=== PATIENT | female | born 1990 | race Caucasian/White ===

== ENCOUNTER 2022-07-21 13:55 | Outpatient (CLI) | payer BC, SELFPAY ==
[2022-07-21 14:11] VITALS: PULSE 94; O2SAT 98
[2022-07-21 14:12] VITALS: BP 108/64; PULSE 84
[2022-07-21 14:16] VITALS: TEMP 36.9
--- NOTE | 2022-07-21 14:53 | CRLHL7_ITS ---
For Patients: As a result of the Century Cures Act, medical imaging exams and procedure reports are released immediately into your electronic medical record. You may view this report before your referring provider. If you have questions, please contact your health care provider. INDICATION: Trauma, fall TECHNIQUE: Ultrasound OB pelvis transabdominal. Real-time sanchez-scale imaging of the fetus was performed without stress testing. COMPARISON: None. FINDINGS: Sonographic imaging demonstrates a single living intrauterine gestation. Fetus demonstrates a regular cardiac rate of 132 beats per minute. Fetus has a breech orientation. Amniotic fluid volume appears normal. breathing movements, motion, and tone were all observed. IMPRESSION: Single viable intrauterine with a biophysical profile 01/19. Dictated by Miguelito Rodrigues MD @ 07/21/2022 4:18:45 PM (Electronically Signed)
--- NOTE | 2022-07-21 18:52 | PC.OBNST ---
NST Note NST Note Start: 07/21/22 14:07 Freq: ONCE Status: Active Protocol: Document 07/21/22 18:50 HOLINESS (Rec: 07/21/22 18:52 HOLINESS [id number]) NST Note 3 Para (# of births) 2 EDC 10/05/22 Gestational Age In Weeks & Days 29 Weeks & 1 Days Patient Presented with Complaint(s) of Observation after an injury If Observation after an injury, describe patient fell at 1730 last night, on her right side. Reactive Yes Appropriate for Gestational Age Yes NISHANT Barboza Date 07/21/22 Reactive Yes Appropriate for Gestational Age Yes NISHANT Medina Date 07/21/22 OB NST charge Yes Complete NST Note via Write Note Yes The provider's electronic signature indicates the NST is reactive/appropriate for gestational age. *Note to provider: If an addendum is required, open the patient's chart and click on the note under the Nurse/Allied Health tab.
== END 2022-07-21 18:35 | disposition home or self-care (01) ==
LOC: OB OUT 14:00 → OB 14:01
PROVIDERS: PCP Family Medicine; Visit Provider Family Medicine
DX: O26.893 Other specified pregnancy related conditions, third trimester (principal); W19.XXXA Unspecified fall, initial encounter; Z3A.29 29 weeks gestation of pregnancy
CPT/HCPCS: 59025; 76819; 99213

== ENCOUNTER 2022-10-02 13:27 | Emergency (ER) | payer BC, SELFPAY ==
[2022-10-02] VITALS (17 sets, daily range): BP systolic 124–141; BP diastolic 66–85; PULSE 74–81; RESP 14–32; TEMP 36.8; O2SAT 97–100; BMI 41.3
--- NOTE | 2022-10-02 13:59 | CRLHL7_ITS ---
For Patients: As a result of the Century Cures Act, medical imaging exams and procedure reports are released immediately into your electronic medical record. You may view this report before your referring provider. If you have questions, please contact your health care provider. INDICATION: cardiomyopathy. TECHNIQUE: Chest 2 view(s) COMPARISON: None. FINDINGS: Mild cardiomegaly. Pulmonary vasculature is normal. No focal consolidation. No pleural effusion, no pneumothorax. No acute chest wall abnormality. IMPRESSION: Mild cardiomegaly. Dictated by Charlie Sunmer MD @ 10/02/2022 4:02:21 PM (Electronically Signed)
--- NOTE | 2022-10-02 14:07 | ED_ITS ---
HPI - General Adult General Chief complaint: Post OB/Post- Complication Stated complaint: 4 days post pardum, shortness of breath, high BP Time Seen by Provider: 10/02/22 13:50 Source: patient Mode of arrival: ambulatory Limitations: no limitations History of Present Illness HPI narrative: 32-year-old female presents with a 3 week history of nocturnal cough with increasing shortness of breath today. Patient reports that she went to urgent care but they recommended she be evaluated in the hospital, she has not tried to contact her Ob provider. She reports an uncomplicated with elective induction of labor at 39 weeks, delivering 4 days ago, discharging 3 days ago. She has no history of DVT or PE. She is . She feels like she cannot catch her breath. It is worse with lying down and worse at night. Denies any hypertension during the but elevated blood pressure noticed here today. She has no personal history of cardiomyopathy. She had possible preeclampsia during her 1st in was also induced at 39 weeks gestation. There were no complications following that delivery. She has no history of underlying cardiac disease. She has not taken any stimulant medications or new medications. She denies any heavy bleeding. States that the bleeding had tapered off nicely couple of days ago increases a little bit with activity which would not be unexpected at her course. No fevers. She is without complication. Past medical history she states is benign. Third , otherwise uncomplicated. She had a prior gallbladder removal at age 17 and a tonsillectomy as a child. No long-term prescription medications. No allergies. Nonsmoker, no alcohol no pertinent travel. ROS notable for dyspnea and cough as stated above. Otherwise denies times 12 systems. Related Data Home Medications Medication Instructions Recorded Confirmed vit no.95-ferrous 1 tab PO DAILY 07/21/22 10/02/22 fumarate 28 mg-folic acid 800 mcg tablet ( Formula) ferrous sulfate 325 mg (65 mg 325 mg PO DAILY 10/02/22 10/02/22 iron) tablet ibuprofen 800 mg tablet 800 mg PO 3XD 10/02/22 10/02/22 ursodiol 300 mg capsule 300 mg PO 3XD 10/02/22 10/02/22 Allergies Allergy/AdvReac Type Severity Reaction Status Date / Time No Known Drug Allergies Allergy Verified 10/02/22 16:36 PFSH PFSH Social History Smoking Status: Never smoker Do you use any of these nicotine containing products: None Second hand tobacco smoke exposure: No How often do you have a drink containing alcohol: never AUDIT-C Alcohol total score: 0 Non-prescribed substance use: denies use Exam Const: Vital Signs, click to edit/add: Vital Signs - 24 hr 10/02/22 13:37 10/02/22 13:50 10/02/22 13:52 Temperature 98.2 F Pulse Rate 75 77 Pulse Rate [Left] 74 Respiratory Rate 32 H Blood Pressure 136/80 132/73 Blood Pressure [Le ft Upper Arm] 141/74 H Pulse Oximetry 100 98 98 Oxygen Delivery Me thod Room Air 10/02/22 14:01 10/02/22 14:14 10/02/22 14:21 Temperature Pulse Rate 81 Pulse Rate [Left] Respiratory Rate Blood Pressure 140/80 H 137/70 129/71 Blood Pressure [Le ft Upper Arm] Pulse Oximetry 98 Oxygen Delivery Me thod 10/02/22 14:31 10/02/22 14:42 10/02/22 14:51 Temperature Pulse Rate Pulse Rate [Left] Respiratory Rate Blood Pressure 140/73 H 135/78 138/68 Blood Pressure [Le ft Upper Arm] Pulse Oximetry Oxygen Delivery Me thod 10/02/22 15:01 10/02/22 15:17 10/02/22 15:31 Temperature Pulse Rate Pulse Rate [Left] Respiratory Rate Blood Pressure 136/71 138/72 124/66 Blood Pressure [Le ft Upper Arm] Pulse Oximetry Oxygen Delivery Me thod 10/02/22 15:47 10/02/22 16:03 10/02/22 17:37 Temperature Pulse Rate 79 Pulse Rate [Left] Respiratory Rate Blood Pressure 134/72 140/85 H 129/70 Blood Pressure [Le ft Upper Arm] Pulse Oximetry 97 Oxygen Delivery Me thod 10/02/22 16:32 10/02/22 17:01 Temperature Pulse Rate 74 Pulse Rate [Left] Respiratory Rate 14 Blood Pressure 129/71 127/68 Blood Pressure [Le ft Upper Arm] Pulse Oximetry 98 97 Oxygen Delivery Me thod Documenting provider has reviewed patient's vital signs: yes Common normals: no apparent distress and alert General appearance: cooperative and well kempt Other: Tachypneic. When I lay her down her heart rate quickly climbs into the high 120s. She seems visibly dyspneic when lying flat. Polite, seems very well adjusted. Excellent insight. HENMT: Common normals: normocephalic and head/scalp atraumatic Head and scalp: normocephalic and atraumatic Face and sinus: normal facial exam Mouth: oral and palatal mucosa normal Throat: posterior oropharynx normal Eye: Common normals: conjunctivae normal General eye: normal appearance of both eyes Conjunctiva: conjunctiva(e) normal Neck & C-Spine: Common normals: full ROM and no lymphadenopathy Other: 6 cm JVD Resp: Other: Tachypneic with increased respiratory effort. Dyspnea with lying flat. Coarse crackles left lung barillas most of the way up the back of the chest. Do not clear with cough. Cardio: Common normals: regular rate, regular rhythm, S1 normal heart sound, S2 normal heart sound and no murmurs Rate: regular rate Rhythm: regular rhythm Heart sounds: S1 normal and S2 normal GI: Common normals: Normal to inspection, nondistended, normoactive bowel sounds present, soft to palpation, non-tender and no hepatosplenomegaly Palpation: soft and no hepatosplenomegaly Other: Fundal height consistent with 14 weeks gestation, appropriate : Common normals: no CVA tenderness Bladder/kidney exam: no CVA tenderness Back & Pelvis: Common normals: no CVA tenderness Extremity: Other: 2+ edema to ankles Neuro: Sensorium/orientation: alert Speech: speech normal Gait (neuro): normal gait Motor exam: no tremor noted and no movement abnormalities noted Psych: Appearance: well kempt Attitude: engaged Mood and affect: euthymic mood Insight: insight good Judgement: judgment good Skin: Common normals: no rashes or lesions noted General skin exam: no rashes or lesions noted Course Vital Signs Vital signs: Initial Vital Signs Temperature 98.2 F 10/02/22 13:37 Temperature Source Temporal Artery Scan 10/02/22 13:37 Pulse Rate 74 10/02/22 13:37 Respiratory Rate 32 H 10/02/22 13:37 Blood Pressure 141/74 H 10/02/22 13:37 Blood Pressure Mean 96 10/02/22 13:37 Blood Pressure Position Sitting 10/02/22 13:37 Pulse Oximetry 100 10/02/22 13:37 Oxygen Delivery Method Room Air 10/02/22 13:37 Vital Signs Temperature 98.2 F 10/02/22 13:37 Pulse Rate 74 10/02/22 13:37 Respiratory Rate 32 H 10/02/22 13:37 Blood Pressure 141/74 H 10/02/22 13:37 Pulse Oximetry 100 10/02/22 13:37 Oxygen Delivery Method Room Air 10/02/22 13:37 Temperature 98.2 F 10/02/22 13:37 Pulse Rate 74 10/02/22 16:32 Respiratory Rate 14 10/02/22 16:32 Blood Pressure 129/70 10/02/22 17:37 Pulse Oximetry 97 10/02/22 17:01 Oxygen Delivery Method Room Air 10/02/22 13:37 Medical Decision Making MDM Narrative Medical decision making narrative: Significant respiratory distress with supine position concerning for cardiomyopathy, preeclampsia. Cannot exclude pulmonary embolism though I would expect her to have more exertional symptoms rather than nocturnal. Begin with basic labs, EKG, chest x-ray. Echo is here so I can get feedback regarding her junction fraction right away. I have been making attempts to try to get a hold of her OB group and was on hold for over 10 min utes with no contact and needed to move along to another patient. I will continue to try to make contact. Update: Was able to make contact with her Ob provider. She agrees with our workup they would prefer MFM at [facility] if needed as they are able to access those notes more easily. We were able to get a bedside echo, thankfully this shows normal left ventricular function. There is a little bit of right ventricular enlargement on the tech impression and also on mine. I am more suspicious now that this could be pulmonary embolus. I have ordered CT PA. labs are thus far reassuring with the exception of the elevated D-dimer. Question the significance of this because she is so soon . I do think she would benefit from a dose of Lasix but I am waiting on the CT PA results. Final update: Patient is feeling better and her lung exam has actually improved quite a bit while here. She was not given any diuretics. Her respiratory rate has improved and she is no longer tachycardic with lying flat. She has urinated quite a bit while she has been here. She has eaten a full dinner and has been pumping breast milk without difficulty. The CT PA is reassuring, the blood work is reassuring. I did curbside consult our on-call Ob provider and she agrees that there are no signs of any severe preeclampsia. As long as patient can monitor her symptoms, is reliable for follow-up and can monitor her blood pressure at home, she does not need additional medication or hospitalization since we have the reassuring echo report. Discussed with patient, she is comfortable with this plan. She will contact her Ob provider right away and make a follow-up appointment for Wednesday. She will monitor her blood pressure at home and follow the guidelines we have discussed. I do think that atelectasis is a component as well and she will be taught incentive spirometry and instructed on how to use this to help with her respiratory symptoms as well. Lab Data Lab results reviewed: Yes I reviewed the patient's lab results Labs: Lab Results 10/02/22 Range/Units 14:20 WBC 8.93 (4.50-11.00) K/uL RBC 4.30 (4.00-5.20) m/uL Hgb 10.0 L (12.0-16.0) gm/dL Hct 33.0 (33.0-51.0) % MCV 77 L (80-100) fL MCH 23 L (26-34) pg MCHC 30 L (32-36) gm/dL RDW Coeff of Annie 16.5 H (11.5-15.5) % Plt Count 308 (140-440) K/uL Neut % (Auto) 65.8 (42.0-72.0) % Lymph % (Auto) 24.1 (20-44) % [place] % (Auto) 6.0 (0.0-11.0) % Eos % (Auto) 2.9 (0.0-7.0) % Baso % (Auto) 0.2 (0.0-3.0) % Neut # (Auto) 5.87 (1.7-7.0) K/uL Lymph # (Auto) 2.15 (0.90-2.90) K/uL [place] # (Auto) 0.50 (0.00-0.90) K/UL Eos # (Auto) 0.26 (0.00-0.50) K/uL Baso # (Auto) 0.02 (0.00-0.30) K/uL D-Dimer Quant (PE/DVT) 1.66 H (0.00-0.50) ug/ml Sodium 138 (135-149) mmol/L Potassium 3.7 (3.6-5.1) mmol/L Chloride 109 (96-114) mmol/L Carbon Dioxide 24 (20-32) mmol/L BUN 10 (5-24) mg/dL Creatinine 0.5 (0.5-1.5) mg/dL Estimated Creat Clear 134.86 Estimated GFR 129 ml/min Glucose 78 (60-115) mg/dL Calcium 8.7 (8.4-10.6) mg/dL Total Bilirubin 0.3 (0.1-1.5) mg/dL Direct Bilirubin 0.2 (0.0-0.5) mg/dL AST 26 (12-35) U/L ALT 26 (4-35) U/L Alkaline Phosphatase 165 H (40-150) U/L Troponin I < 0.01 L (0.01-0.04) ng/mL NT-Pro-B Natriuret Pep 951 pg/mL Total Protein 7.0 (6.0-8.3) g/dL Albumin 3.5 (3.3-5.0) g/dL Imaging Data Chest x-ray: Attestation: I have reviewed the pertinent imaging results. My impression: Some mild cardiomegaly but no signs of pulmonary vascular congestion on chest x- ray. Per tech report, the echo shows good left ventricular function with an EF of 60-65%. There is some mild LVH. There is moderate tricuspid regurg but looks like some right ventricular enlargement, waiting on the formal report which will not be available until tomorrow. Findings again suspicious for probably a pulmonary embolus. I have ordered a CT PA. Radiologist's impression: Chest x-ray IMPRESSION: Mild cardiomegaly. CT scan - chest: Attestation: I have reviewed the pertinent imaging results. My impression: No PE, small bilateral pleural effusions Radiologist's impression: IMPRESSION: 1. No evidence of acute pulmonary embolus, within limitations as described above. 2. Mild cardiomegaly. Small bilateral pleural effusions. Discharge Plan Discharge Clinical Impression: Mild pre-eclampsia, Atelectasis Patient Disposition: Home w/ Parent or Adult Condition: Improved Instructions: Atelectasis (ED), PEP Therapy (DC) Additional Instructions: We discussed, your symptoms do seem consistent with mild preeclampsia. We were able to rule out a blood clot in your lungs, any complications from preeclampsia and we were even able to get an echo which is the ultrasound of your heart which all tell us that your organs are functioning normally. Because of this, we do not need to put you in the hospital. I have spoken with our OB specialist and she is comfortable with the following plan: You need to monitor your blood pressure at least twice daily. Your blood pressure might be a little elevated for the next few days but should consistently be under 150. Remember that this is most accurate at rest rather than when you are very busy. If your blood pressure starts running over 150 and you start having increased headaches, dizziness, vision changes, severe fatigue, worsening shortness of breath, abdominal pain or other strange changes, we would want for you to come back to the ER. In addition to the mild preeclampsia, you have a little bit of atelectasis, a compression of your lungs that is common in . We will give you a simple breathing machine to help open these up. Please use this every 2 hours while awake. Please message your typical OB care team and ask for a follow-up appointment for Wednesday to recheck your blood pressure and see how things are going. We will send over copies of our records for their review as well. Please bring your discharge paperwork for them as it will have our contact numbers if they need this as well. Activity Level: Activity as Tolerated Discharge Diet: Regular Prescriptions: No Action PNV cmb#95-ferrous fumarate-FA [ Formula] 28 mg iron- 800 mcg tablet 1 tab PO DAILY ibuprofen 800 mg tablet 800 mg PO 3XD ferrous sulfate 325 mg (65 mg iron) tablet 325 mg PO DAILY ursodiol 300 mg capsule 300 mg PO 3XD Follow Up/Referrals: Alicja Felix MD [Staff Physician] - Stand Alone Forms: [employer] Info Instructions
[2022-10-02 14:34] LABS: Basophils Absolute Auto 0.02 K/uL (0.00-0.30); Basophils Percent Auto 0.2 % (0.0-3.0); Eosinophils Absolute Auto 0.26 K/uL (0.00-0.50); Eosinophils Percent Auto 2.9 % (0.0-7.0); Immature Granulocytes Abs Auto 0.09 K/uL (0.00-0.30); Lymphocytes Absolute Auto 2.15 K/uL (0.90-2.90); Lymphocytes Percent Auto 24.1 % (20-44); Mean Corpuscular HGB Conc 30 gm/dL (32-36); Mean Corpuscular Hemoglobin 23 pg (26-34); Mean Corpuscular Volume 77 fL (80-100); Neutrophils Absolute Auto 5.87 K/uL (1.7-7.0); Neutrophils Percent Auto 65.8 % (42.0-72.0); Platelet Count* 308 K/uL (140-440); RDW Coefficient of Variation % 16.5 % (11.5-15.5); White Blood Count* 8.93 K/uL (4.50-11.00)
[2022-10-02 14:49] LABS: Chloride* 109 mmol/L (96-114); Slide Review Reflex No
[2022-10-02 14:50] LABS: Albumin* 3.5 g/dL (3.3-5.0)
[2022-10-02 14:51] LABS: Potassium* 3.7 mmol/L (3.6-5.1); Sodium* 138 mmol/L (135-149)
[2022-10-02 14:53] LABS: Alkaline Phosphatase* 165 U/L (40-150); Aspartate Amino Transferase* 26 U/L (12-35); Bilirubin Direct* 0.2 mg/dL (0.0-0.5); Bilirubin Total* 0.3 mg/dL (0.1-1.5); Blood Urea Nitrogen* 10 mg/dL (5-24); Carbon Dioxide* 24 mmol/L (20-32); Creatinine* 0.5 mg/dL (0.5-1.5); Est. Creatinine Clearance* 134.86; Estimated Glomerular Filt Rate 129 ml/min
[2022-10-02 14:54] LABS: Alanine Aminotransferase* 26 U/L (4-35); Calcium* 8.7 mg/dL (8.4-10.6); Glucose* 78 mg/dL (60-115)
[2022-10-02 14:56] LABS: D Dimer Quantitative* 1.66 ug/ml (0.00-0.50)
[2022-10-02 15:07] LABS: NT Pro B Type NatriureticPept* 951 pg/mL; Troponin I* < 0.01 ng/mL (0.01-0.04)
--- NOTE | 2022-10-02 16:02 | CRLHL7_ITS ---
For Patients: As a result of the Century Cures Act, medical imaging exams and procedure reports are released immediately into your electronic medical record. You may view this report before your referring provider. If you have questions, please contact your health care provider. INDICATION: dyspnea. TECHNIQUE: CT chest PE was acquired with 95 cc Isovue 370 IV contrast. COMPARISON: Chest radiograph earlier same day, dated 10/02/2022. FINDINGS: Heart and vasculature: Mild cardiomegaly. No pericardial effusion. Suboptimal evaluation secondary to motion artifact and suboptimal contrast opacification of the pulmonary arteries. No filling defects identified within the main, lobar, and contrast opacified portions of the segmental pulmonary arteries. Lungs and pleura: Small bilateral pleural effusions, with associated compressive atelectasis. Subsegmental atelectasis in the right middle lobe. No evidence of pulmonary infarct. 0.5 cm subpleural nodule in the right middle lobe. Thyroid and lower neck: No suspicious thyroid nodule. Mediastinum/joaquim: No lymphadenopathy. Chest wall: No axillary lymphadenopathy. Upper abdomen: Post cholecystectomy. No acute abnormality. Bones: No suspicious/aggressive focal osseous lesion. IMPRESSION: 1. No evidence of acute pulmonary embolus, within limitations as described above. 2. Mild cardiomegaly. Small bilateral pleural effusions. 3. 0.5 cm subpleural pulmonary nodule in the right middle lobe. Consider optional follow up CT chest in 12 months, per Fleischner guidelines. Please note that all CT scans at this facility use dose modulation, iterative reconstruction, and/or weight-based dosing when appropriate to reduce radiation dose to as low as reasonably achievable. Dictated by Charlie Sumner MD @ 10/02/2022 5:43:15 PM (Electronically Signed)
--- NOTE | 2022-10-02 16:12 | ED.NURSE ---
Meal tray ordered for pt.
--- NOTE | 2022-10-02 18:38 | ED.NURSE ---
Pt provided with records from today's visit and Incentive Spirometry, return demonstration after education.
== END 2022-10-02 18:37 | disposition home or self-care (01) ==
PROVIDERS: Emergency Provider Family Medicine
DX: O14.00 Mild to moderate pre-eclampsia, unspecified trimester (principal); J98.11 Atelectasis
CPT/HCPCS: 36415; 71046; 71260; 80048; 80076; 81003; 83880; 84484; 85025; 85379; 93005; 93306; 99284; 99285; Q9967

== ENCOUNTER 2022-10-03 12:24 | Emergency (ER) | payer BC, SELFPAY ==
[2022-10-03] VITALS (23 sets, daily range): BP systolic 129–145; BP diastolic 70–90; PULSE 60–88; RESP 24; TEMP 36.7; O2SAT 94–99; BMI 41.3
--- NOTE | 2022-10-03 12:42 | ED.GENADULT ---
HPI - General Adult General Time Seen by Provider: 12:42 Date Seen: 10/03/22 Chief complaint: High Blood Pressure Stated complaint: high blood pressure post Time Seen by Provider: 10/03/22 12:27 Source: patient, RN notes reviewed and old records reviewed Mode of arrival: ambulatory Limitations: no limitations History of Present Illness HPI narrative: patient is a 32-year-old female coming in with concern of elevated blood pressures at home. She admits she is not sure if she was doing the cough correctly. She has no symptoms such as visual changes, no scotoma, no headache. She has no abdominal pain. She does have some lower extremity edema that was there yesterday as well, not worse. She was in the ER yesterday, had an extensive workup, I have read Dr. Wiseman's notes and the tests done. There was some atelectasis, possibly some cardiomegaly on her chest x-ray. Bedside echo was done, overall function looked good. There was potentially maybe some LVH but this was bedside. Patient notes that she still is having the shortness of breath when she tries to lie supine, will start coughing. She has a history of preeclampsia with her 1st , this was her 3rd . This was uncomplicated. Patient was thinking she was diagnosed with preeclampsia yesterday and I reviewed with her that technically she is not meeting criteria at this point but still is at risk, I do note that she did have some blood pressures yesterday just in the 140/90 range. If we truly thought she had preeclampsia, would have likely been started on blood pressure medicines. Does not seem like it is indicated yet. Her arrival blood pressure here is 133/86. She was obtaining systolic levels of 140s and 150s at home but admits she was asymptomatic as far as Preeclampsia symptoms. Of note, patient had a negative chest CT PE protocol yesterday. Related Data Home Medications Medication Instructions Recorded Confirmed vit no.95-ferrous 1 tab PO DAILY 07/21/22 10/02/22 fumarate 28 mg-folic acid 800 mcg tablet ( Formula) ferrous sulfate 325 mg (65 mg 325 mg PO DAILY 10/02/22 10/02/22 iron) tablet ibuprofen 800 mg tablet 800 mg PO 3XD 10/02/22 10/02/22 ursodiol 300 mg capsule 300 mg PO 3XD 10/02/22 10/02/22 Allergies Allergy/AdvReac Type Severity Reaction Status Date / Time No Known Drug Allergies Allergy Verified 10/02/22 16:36 Review of Systems Status of ROS: Reports: 10 or more systems reviewed and unremarkable except as noted in History and below PFS PFS Social History Smoking Status: Never smoker Do you use any of these nicotine containing products: None Second hand tobacco smoke exposure: No How often do you have a drink containing alcohol: never AUDIT-C Alcohol total score: 0 Non-prescribed substance use: denies use service: No Exam Const: Vital Signs, click to edit/add: Vital Signs - 24 hr 10/03/22 12:30 10/03/22 13:42 10/03/22 12:51 Temperature 98.1 F Pulse Rate 67 Pulse Rate [Pulse Oximeter] 65 Respiratory Rate 24 Blood Pressure 132/87 Blood Pressure [Ri ght Upper Arm] 133/86 Pulse Oximetry 98 99 97 Oxygen Delivery Me thod Room Air 10/03/22 12:52 10/03/22 13:00 10/03/22 13:02 Temperature Pulse Rate 69 65 79 Pulse Rate [Pulse Oximeter] Respiratory Rate Blood Pressure 136/83 Blood Pressure [Ri ght Upper Arm] Pulse Oximetry 97 98 99 Oxygen Delivery Me thod 10/03/22 13:21 10/03/22 13:30 10/03/22 13:32 Temperature Pulse Rate 66 72 75 Pulse Rate [Pulse Oximeter] Respiratory Rate Blood Pressure 129/83 137/87 Blood Pressure [Ri ght Upper Arm] Pulse Oximetry 98 96 96 Oxygen Delivery Me thod 10/03/22 13:46 10/03/22 14:00 10/03/22 14:02 Temperature Pulse Rate 77 67 68 Pulse Rate [Pulse Oximeter] Respiratory Rate Blood Pressure 140/85 H 136/86 Blood Pressure [Ri ght Upper Arm] Pulse Oximetry 97 97 97 Oxygen Delivery Me thod 10/03/22 14:03 10/03/22 14:17 10/03/22 14:30 Temperature Pulse Rate 73 88 60 Pulse Rate [Pulse Oximeter] Respiratory Rate Blood Pressure 145/90 H Blood Pressure [Ri ght Upper Arm] Pulse Oximetry 97 98 95 Oxygen Delivery Me thod 10/03/22 14:32 10/03/22 14:33 10/03/22 14:47 Temperature Pulse Rate 80 68 82 Pulse Rate [Pulse Oximeter] Respiratory Rate Blood Pressure 138/72 131/70 Blood Pressure [Ri ght Upper Arm] Pulse Oximetry 95 97 94 Oxygen Delivery Me thod 10/03/22 15:02 10/03/22 15:17 Temperature Pulse Rate 83 69 Pulse Rate [Pulse Oximeter] Respiratory Rate Blood Pressure 138/73 Blood Pressure [Ri ght Upper Arm] Pulse Oximetry 99 96 Oxygen Delivery Me thod Documenting provider has reviewed patient's vital signs: yes Common normals: no apparent distress, oriented x3, no limitations, healthy appearing, alert and well nourished General appearance: cooperative, comfortable, well kempt and well developed Nutritional appearance: overweight HENMT: Common normals: normocephalic, head/scalp atraumatic, hearing grossly normal bilaterally and external nose normal Head and scalp: normocephalic and atraumatic Nose: external nose normal Eye: Common normals: PERRL, EOMs intact bilaterally, conjunctivae normal and no scleral icterus Conjunctiva: conjunctiva(e) normal Pupil: PERRL Neck & C-Spine: Common normals: full ROM, no lymphadenopathy, supple, no meningeal signs, no JVD and thyroid normal Thyroid: thyroid normal Resp: Common normals: normal respiratory effort, no retractions, no use of accessory muscles and clear to auscultation bilaterally Auscultation: clear to auscultation bilaterally Cardio: Common normals: no JVD, regular rate, regular rhythm, S1 normal heart sound, S2 normal heart sound, no gallops, no clicks, no murmurs and no rub Rate: regular rate Rhythm: regular rhythm Heart sounds: S1 normal and S2 normal GI: Common normals: Normal to inspection, nondistended, normoactive bowel sounds present, soft to palpation, non-tender, no hepatosplenomegaly and no masses Palpation: soft and no hepatosplenomegaly Other: Uterus still palpable but nontender. Extremity: Other: Has about 2+ pedal edema, maybe 1+ lower pretibial. Legs are not tender, no overlying vascular changes or erythe Neuro: Common normals: oriented x3 Sensorium/orientation: alert Meningeal signs: no meningeal signs Psych: Appearance: well kempt Course Course Hospital Course: Patient will be monitored on cardiac monitoring and pulse oximetry. Have reviewed with her that her blood pressure looks reasonable here at 133/86. She does not have her blood pressure cuff with her, have advised her that she should get this standardized against in office or hospital blood pressure reading at some point. Do have concerns with the mild cardiomegaly maybe question on chest x-ray yesterday, will be getting full complement of labs. We will look at preeclampsia labs again. Protein to creatinine ratio is less specific . Reevaluation(s) Reevaluation #1: Have reviewed with patient that she is meeting criteria for mild preeclampsia with her blood pressure. Her labs are all reassuring. Have spoken with our computer hardware designer. She recommends ongoing observation. We did discuss signs and symptoms for return. She will need to continue monitoring her blood pressure at home. If she is getting elevated readings, she understands that she will need to bring her cuff in to get standardized against our blood pressure monitoring. Have reviewed with patient that on the chest x-rays, she does look to have some borderline cardiomegaly. She is not in any evidence of congestive heart failure or any cardiomyopathy. I do think at some point she should have an outpatient echo. Time: 15:34 Consultations Consultation #1: Spoke with Dr. Pelayo, reviewed the case. She did review the labs. She believes the patient does meet criteria for mild preeclampsia. Patient looking at her blood pressures here has had a 140/85 and 145/90 but other pressures have been in the 130s over 70s to 80s. At this time she states she needs ongoing observation, monitoring of her blood pressure at home but can discharge to home. She does not need any IV magnesium. Time: 15:26 Vital Signs Vital signs: Initial Vital Signs Temperature 98.1 F 10/03/22 12:30 Temperature Source Temporal Artery Scan 10/03/22 12:30 Pulse Rate 65 10/03/22 12:30 Respiratory Rate 24 10/03/22 12:30 Blood Pressure 133/86 10/03/22 12:30 Blood Pressure Mean 101 10/03/22 12:30 Blood Pressure Position Supine 10/03/22 12:30 Pulse Oximetry 98 10/03/22 12:30 Oxygen Delivery Method Room Air 10/03/22 12:30 Vital Signs Temperature 98.1 F 10/03/22 12:30 Pulse Rate 65 10/03/22 12:30 Respiratory Rate 24 10/03/22 12:30 Blood Pressure 133/86 10/03/22 12:30 Pulse Oximetry 98 10/03/22 12:30 Oxygen Delivery Method Room Air 10/03/22 12:30 Temperature 98.1 F 10/03/22 12:30 Pulse Rate 69 10/03/22 15:17 Respiratory Rate 24 10/03/22 12:30 Blood Pressure 138/73 10/03/22 15:17 Pulse Oximetry 96 10/03/22 15:17 Oxygen Delivery Method Room Air 10/03/22 12:30 Medical Decision Making Lab Data Labs: Lab Results 10/03/22 Range/Units 13:08 WBC 9.31 (4.50-11.00) K/uL RBC 4.19 (4.00-5.20) m/uL Hgb 9.8 L (12.0-16.0) gm/dL Hct 32.4 L (33.0-51.0) % MCV 77 L (80-100) fL MCH 23 L (26-34) pg MCHC 30 L (32-36) gm/dL RDW Coeff of Annie 16.9 H (11.5-15.5) % Plt Count 310 (140-440) K/uL Neut % (Auto) 70.9 (42.0-72.0) % Lymph % (Auto) 19.3 L (20-44) % Swisher % (Auto) 6.2 (0.0-11.0) % Eos % (Auto) 2.6 (0.0-7.0) % Baso % (Auto) 0.2 (0.0-3.0) % Neut # (Auto) 6.60 (1.7-7.0) K/uL Lymph # (Auto) 1.80 (0.90-2.90) K/uL Swisher # (Auto) 0.60 (0.00-0.90) K/UL Eos # (Auto) 0.24 (0.00-0.50) K/uL Baso # (Auto) 0.02 (0.00-0.30) K/uL VBG pH 7.475 H (7.32-7.43) VBG pCO2 35 L (40-50) mmHG VBG pO2 47.1 H (25-47) mmHG VBG HCO3 26 (21-28) mmol/L Sodium 137 (135-149) mmol/L Potassium 3.7 (3.6-5.1) mmol/L Chloride 108 (96-114) mmol/L Carbon Dioxide 23 (20-32) mmol/L BUN 11 (5-24) mg/dL Creatinine 0.5 (0.5-1.5) mg/dL Estimated Creat Clear 134.86 Estimated GFR 129 ml/min Glucose 93 (60-115) mg/dL Calcium 8.6 (8.4-10.6) mg/dL Total Bilirubin 0.3 (0.1-1.5) mg/dL AST 22 (12-35) U/L ALT 25 (4-35) U/L Alkaline Phosphatase 145 (40-150) U/L Troponin I < 0.01 L (0.01-0.04) ng/mL C-Reactive Protein 2.2 H (0.5-1.0) mg/dL NT-Pro-B Natriuret Pep 705 pg/mL Total Protein 6.8 (6.0-8.3) g/dL Albumin 3.3 (3.3-5.0) g/dL Imaging Data Chest x-ray: Attestation: I have reviewed the pertinent imaging results. My impression: I do see what appears to be some cardiomegaly but no congestive heart failure my preliminary review. Radiologist's impression: Patient: [facility] Facility:?[facility] Patient ID:?[id number] Site Patient ID:?[id number]. Site :?[id number] Study:?XRay Chest 2V-10/03/2022 1:46:45 PM Ordering Physician:Usha Roman Final Report: INDICATION: Post , shortness of breath when supine TECHNIQUE: Chest 2 views. COMPARISON: Chest x-ray 10/02/2022 FINDINGS: Stable mild cardiomegaly. The pulmonary vasculature is within normal limits. The lungs are clear without focal consolidation, pleural effusion or pneumothorax. The bones are unremarkable. IMPRESSION: Stable chest with mild cardiomegaly. Dictated by Chiquis Barth MD @ 10/03/2022 2:20:57 PM Dictated by: Chiquis Barth MD @ 10/03/2022 14:21:48 (Electronic Signature) ECG Data Attestation: I personally reviewed and interpreted this ECG as follows: (Normal sinus rhythm, 63 beats per minute. QT corrected 403 milliseconds. No ischemic change.) Critical Care Time Critical Care Time Critical Care Time: No Discharge Plan Discharge Clinical Impression: Mild pre-eclampsia Patient Disposition: Home, Self-Care Condition: Stable Instructions: Preeclampsia During (ED) Additional Instructions: Preeclampsia can happen for up to 6 weeks . You need to continue monitoring her blood pressures. If they are elevated as outlined by a Dr. Wiseman, need to return for further evaluation, bring your blood pressure cuff with so we can see what your cuff is reading against our values. If you have any symptoms of preeclampsia such as headaches, visual disturbances, right upper quadrant abdominal pain, do need to be emergently re-evaluated. Otherwise, need to contact your computer hardware designer tomorrow and be rechecked within the next 24-48 hours. Activity Level: Activity as Tolerated Prescriptions: No Action PNV cmb#95-ferrous fumarate-FA [ Formula] 28 mg iron- 800 mcg tablet 1 tab PO DAILY ibuprofen 800 mg tablet 800 mg PO 3XD ferrous sulfate 325 mg (65 mg iron) tablet 325 mg PO DAILY ursodiol 300 mg capsule 300 mg PO 3XD Follow Up/Referrals: Provider,Not a Local [Primary Care Provider] - Stand Alone Forms: [employer] Info Instructions
--- NOTE | 2022-10-03 12:53 | CRLHL7_ITS ---
For Patients: As a result of the Cures Act, medical imaging exams and procedure reports are released immediately into your electronic medical record. You may view this report before your referring provider. If you have questions, please contact your health care provider. INDICATION: Post , shortness of breath when supine TECHNIQUE: Chest 2 views. COMPARISON: Chest x-ray 10/02/2022 FINDINGS: Stable mild cardiomegaly. The pulmonary vasculature is within normal limits. The lungs are clear without focal consolidation, pleural effusion or pneumothorax. The bones are unremarkable. IMPRESSION: Stable chest with mild cardiomegaly. Dictated by Chiquis Barth MD @ 10/03/2022 2:20:57 PM Dictated by: Chiquis Barth MD @ 10/03/2022 14:21:48 (Electronically Signed)
[2022-10-03 13:14] LABS: HCO3 VBG 26 mmol/L (21-28); PCO2 VBG 35 mmHG (40-50); PO2 VBG 47.1 mmHG (25-47); pH VBG 7.475 (7.32-7.43)
[2022-10-03 13:20] LABS: Basophils Absolute Auto 0.02 K/uL (0.00-0.30); Basophils Percent Auto 0.2 % (0.0-3.0); Eosinophils Absolute Auto 0.24 K/uL (0.00-0.50); Eosinophils Percent Auto 2.6 % (0.0-7.0); Hematocrit 32.4 % (33.0-51.0); Hemoglobin* 9.8 gm/dL (12.0-16.0); Immature Granulocytes Abs Auto 0.07 K/uL (0.00-0.30); Immature Granulocytes Pct Auto 0.8 %; Lymphocytes Percent Auto 19.3 % (20-44); Mean Corpuscular HGB Conc 30 gm/dL (32-36); Mean Corpuscular Hemoglobin 23 pg (26-34); Mean Corpuscular Volume 77 fL (80-100); Monocytes Percent Auto 6.2 % (0.0-11.0); Neutrophils Percent Auto 70.9 % (42.0-72.0); Platelet Count* 310 K/uL (140-440); RDW Coefficient of Variation % 16.9 % (11.5-15.5); Red Blood Count 4.19 m/uL (4.00-5.20); Slide Review Reflex No; White Blood Count* 9.31 K/uL (4.50-11.00)
[2022-10-03 13:33] LABS: Albumin* 3.3 g/dL (3.3-5.0); Chloride* 108 mmol/L (96-114); Sodium* 137 mmol/L (135-149)
[2022-10-03 13:34] LABS: Potassium* 3.7 mmol/L (3.6-5.1)
[2022-10-03 13:36] LABS: Aspartate Amino Transferase* 22 U/L (12-35); Bilirubin Total* 0.3 mg/dL (0.1-1.5); Creatinine* 0.5 mg/dL (0.5-1.5); Est. Creatinine Clearance* 134.86; Estimated Glomerular Filt Rate 129 ml/min
[2022-10-03 13:37] LABS: Alanine Aminotransferase* 25 U/L (4-35); Alkaline Phosphatase* 145 U/L (40-150); Blood Urea Nitrogen* 11 mg/dL (5-24); Calcium* 8.6 mg/dL (8.4-10.6); Carbon Dioxide* 23 mmol/L (20-32); Glucose* 93 mg/dL (60-115); Total Protein* 6.8 g/dL (6.0-8.3)
[2022-10-03 13:39] LABS: C Reactive Protein* 2.2 mg/dL (0.5-1.0)
[2022-10-03 13:49] LABS: NT Pro B Type NatriureticPept* 705 pg/mL; Troponin I* < 0.01 ng/mL (0.01-0.04)
== END 2022-10-03 15:51 | disposition home or self-care (01) ==
PROVIDERS: Emergency Provider Family Medicine
DX: O14.00 Mild to moderate pre-eclampsia, unspecified trimester (principal)
CPT/HCPCS: 36415; 71046; 80053; 82803; 83880; 84484; 85025; 86140; 93005; 99284; 99285